=== PATIENT | female | born 1995 | race Hispanic/Latino ===

== ENCOUNTER 2017-08-29 23:29 | Emergency (ER) | payer OTHER ==
[2017-08-30] MEDS ORDERED: Tmp-Smz 800 mg-160 mg DS Tab PO STA (00:19)
[2017-08-30] MEDS ORDERED: Tdap Vaccine 0.5 ml Vial (10-64 yrs) IM ONE ×2 (00:19→00:37)
--- NOTE | 2017-08-30 00:22 | ED PDOC ---
HPI: Skin/Bite Injury Time Seen by Provider: 08/29/17 23:53 Chief Complaint (Nursing): Abnormal Skin Integrity History Per: Patient History/Exam Limitations: no limitations Onset/Duration Of Symptoms: Days (7) Additional Complaint(s): 22 yo F sustained an abrasion to the posterior upper L thigh from a futon, noticed today that the wound appears more red and is painful to touch. Denies fever, chills, d/c, edema, numbness, other trauma or injury. Has no other complaints. Past Medical History Vital Signs: Last Vital Signs Temp 98 F 08/29/17 23:44 Pulse 103 H 08/29/17 23:44 Resp 16 08/29/17 23:44 BP 121/69 08/29/17 23:44 Pulse Ox 97 08/30/17 00:22 - Medical History PMH: No Chronic Diseases - Family History Family History: States: No Known Family Hx - Immunization History Hx Tetanus Toxoid Vaccination: No (patient is unsure of her last tetanus) - Home Medications Home Medications: Ambulatory Orders Medication Instructions Recorded Cephalexin [Keflex] 500 mg PO Q6 #28 capsule 08/30/17 Sulfamethoxazole/Trimethoprim 2 tab PO BID #28 tab 08/30/17 [Bactrim DS 800 mg-160 mg] - Allergies Allergies/Adverse Reactions: Allergies Allergy/AdvReac Type Severity Reaction Status Date / Time No Known Allergies Allergy Verified 08/29/17 23:44 Review of Systems Constitutional: Negative for: Fever, Chills, Weakness, Malaise Musculoskeletal: Positive for: Leg Pain. Negative for: Neck Pain, Shoulder Pain , Back Pain Skin: Positive for: Other (abrasion to the L thigh). Negative for: Rash, Lesions Physical Exam - Reviewed Vital Signs Reviewed: Yes - Physical Exam Appears: Positive for: Well, Non-toxic, No Acute Distress Skin: Positive for: Normal Color, Warm, Dry. Negative for: Rash Pulses-Post. Tibialis (L): 2+ Pulses-Post. Tibialis (R): 2+ Extremity: Positive for: Normal ROM, Capillary Refill (normal), Other (+healing 5 cm linear abrasion to the posterior upper L thigh with surrounding erythema, mild tenderness to palpation, no edema, no d/c). Negative for: Tenderness, Calf Tenderness, Deformity, Swelling Lymphatic: Negative for: Inguinal Node Tenderness Neurologic/Psych: Positive for: Alert, prepress manager II-XII, Oriented (x3), Gait (steady) . Negative for: Motor/Sensory Deficits - ECG O2 Sat by Pulse Oximetry: 97 Medical Decision Making Medical Decision Making: Plan : - bactrim ds po - keflex po - tdap IM - wound dressing Patient instructed on proper wound care, informed that her wound now appears to be infected and that she will need to be started on antibiotics, which she is agreeable to. Instructed to follow-up with pmd or referral provided in 1-2 days without fail. Advised to take medication as prescribed. Return to the emergency room at any time for any new or worsening symptoms. Patient states she fully agrees with and understands discharge instructions. States that she agrees with the plan and disposition. Verbalized and repeated discharge instructions and plan. I have given the patient opportunity to ask any additional questions. Disposition - Clinical Impression Clinical Impression: Wound infection - Patient ED Disposition Is Patient to be Admitted: No Counseled Patient/Family Regarding: Diagnosis, Need For Followup, Rx Given - Disposition Referrals: Yehuda Rhodes MD [Staff Provider] - Disposition: Routine/Home Disposition Time: 00:30 Condition: STABLE Additional Instructions: Thank you for letting us take care of you today. You were treated for wound infection. The emergency medical care you received today was directed at your acute symptoms. If you were prescribed any medication, please fill it and take as directed. It may take several days for your symptoms to resolve. Return to the Emergency Department if your symptoms worsen, do not improve, or if you have any other problems. Please contact your doctor in 2 days for re-evaluation and follow up / or call one of the physicians/clinics you have been referred to that are listed on the Patient Visit Information form that is included in your discharge packet. Bring any paperwork you were given at discharge with you along with any medications you are taking to your follow up visit. Our treatment cannot replace ongoing medical care by a primary care provider (PCP) outside of the emergency department. Thank you for allowing the [facility] team to be part of your care today. Prescriptions: Cephalexin [Keflex] 500 mg PO Q6 #28 capsule Sulfamethoxazole/Trimethoprim [Bactrim DS 800 mg-160 mg] 2 tab PO BID #28 tab Instructions: Wound Infection Forms: [employer] ([place]) - PA / ADMINISTRATIVE SERVICES DIRECTOR / Resident Statement MD/DO has reviewed & agrees with the documentation as recorded.
[2017-08-30] MEDS ORDERED: Tmp-Smz 800 mg-160 mg DS Tab ONE ×2 (00:33→00:43)
[2017-08-30 03:16] VITALS: BP 118/64; PULSE 89; RESP 18; TEMP 97.9; O2SAT 98
== END 2017-08-30 00:57 | disposition home or self-care (01) ==
LOC: H.ER 23:29
DX: L08.9 Local infection of the skin and subcutaneous tissue, unspecified (principal)